=== PATIENT | female | born 1940 | race African-American/Black ===

== ENCOUNTER 2018-08-06 00:37 | Emergency (ER) | payer MEDICARE, OTHER ==
[~2018-08-06] VITALS: Ht 154.9 cm; Wt 45.4 kg
[2018-08-06 00:47] VITALS: BP 131/85
[2018-08-06] MEDS ORDERED: LACTULOSE 20Gm/30ML SOLN ONE (05:17)
[2018-08-06 05:39] LABS: Albumin 3.4 g/dL (3.4-5.0); BUN/Creatinine Ratio 32.8; Bilirubin, Total 0.3 mg/dL (0.2-1.0); Calcium 8.5 mg/dL (8.5-10.1); Potassium 3.9 mmol/L (3.5-5.1); Total Protein 7.3 g/dL (6.4-8.2)
[2018-08-06 06:14] LABS: Basophils # (auto) 0 uL; Basophils % (auto) 0.6 % (0.0-2.0); Eosinophils # (auto) 0 uL; Eosinophils % (auto) 0.2 % (0.0-7.0); Hematocrit 34.4 % (36.0-46.0); Hemoglobin 11.1 g/dL (12.2-16.2); Lymphocytes # (auto) 1.3 uL; Mean Corpuscular Hgb Conc. 32.3 g/dL (32.0-36.0); Mean Corpuscular Volume 83.4 fL (80.0-100.0); Monocytes # (auto) 0.4 uL; Monocytes % (auto) 5.6 % (0.0-12.0); Neutrophils # (auto) 5.3 uL; Neutrophils % (auto) 75.6 % (37.0-80.0); Platelet Count (auto) 372 10^3/uL (140-450); Red Blood Cells 4.12 10^6/uL (4.0-5.20); Red Cell Distribution Width 17.2 % (11.8-14.3)
== END 2018-08-06 05:56 | disposition home or self-care (01) ==
LOC: ER 00:39
DX: R10.30 Lower abdominal pain, unspecified (principal); K56.41 Fecal impaction
CPT/HCPCS: 36415; 74176; 80053; 82150; 83690; 85025